=== PATIENT | male | born 1965 ===

== ENCOUNTER 2017-05-15 11:27 | Emergency (ER) | payer OTHER ==
--- NOTE | 2017-05-15 13:20 | C.PDOC ---
History Of Present Illness 51 year old male presents to the ED for evaluation of a headache which has been occurring in intermittent episodes for several months. Patient was unable to find relief after taking Tylenol and Advil. He denies fever, chills, neck pain, vision change. Time Seen by Provider: 05/15/17 12:38 Chief Complaint (Nursing): Headache History Per: Patient History/Exam Limitations: no limitations Onset/Duration Of Symptoms: Intermittent Episodes (several months ) Current Symptoms Are (Timing): Still Present Quality: Aching Preceeding Symptoms: denies: Visual Disturbances Associated Symptoms: denies: Photophobia, Blurred Vision Additional History Per: Patient Past Medical History Reviewed: Historical Data, Nursing Documentation, Vital Signs Vital Signs: Last Vital Signs Temp 98.2 F 05/15/17 14:34 Pulse 92 H 05/15/17 14:34 Resp 18 05/15/17 14:34 BP 142/85 05/15/17 14:34 Pulse Ox 98 05/15/17 14:34 - Medical History PMH: Pneumothorax Surgical History: No Surg Hx Family History: States: Unknown Family Hx - Social History Hx Alcohol Use: Yes Hx Substance Use: No - Immunization History Hx Tetanus Toxoid Vaccination: Yes Hx Influenza Vaccination: No Hx Pneumococcal Vaccination: No Review Of Systems Constitutional: Negative for: Fever, Chills Eyes: Negative for: Vision Change Neurological: Positive for: Headache Physical Exam - Physical Exam Appears: Non-toxic, No Acute Distress Skin: Normal Color, Warm, Dry, No Rash Head: Atraumatic, Normacephalic, No Tenderness, No Swelling Eye(s): bilateral: PERRL, EOMI, Other (conjunctival injection) Ear(s): Bilateral: Normal Oral Mucosa: Moist Throat: No Erythema, No Exudate Neck: Normal ROM, No Midline Cervical Tenderness, No Paracervical Tenderness, Supple Cardiovascular: Rhythm Regular, No Friction Rub, No Murmur Respiratory: Normal Breath Sounds, No Rales, No Rhonchi, No Wheezing Gastrointestinal/Abdominal: Normal Exam, Soft, No Tenderness Back: Normal Inspection, No CVA Tenderness Extremity: Normal ROM, Capillary Refill (less than 2 seconds) Neurological/Psych: Oriented x3, Normal Speech, Normal Cognition, Normal Motor, Normal Sensation Gait: Steady ED Course And Treatment O2 Sat by Pulse Oximetry: 97 (on RA) Pulse Ox Interpretation: Normal Medical Decision Making Medical Decision Making: Plan: * CT Head * Reglan PO * Toradol IM * reassess and disposition Progress: CT Head ordered and reviewed. Reglan PO and Toradol IM administered. On re-exam, the patient reports improvement of symptoms. Abdomen is soft, non- tender and patient is tolerating PO well. Lungs are CTA, heart is RRR. Ambulatory in the ED with steady gait. Follow up with the medical doctor within 1-2 days. Return if worsened. Disposition - Disposition Referrals: [facility] [Outside] Disposition: HOME/ ROUTINE Disposition Time: 14:25 Condition: GOOD Additional Instructions: Follow up with the medical doctor within 1-2 days. Return if worsened. 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 - Scribe Statement The provider has reviewed the documentation as recorded by the Scribe (Gaby Solano) All medical record entries made by the Scribe were at my direction and personally dictated by me. I have reviewed the chart and agree that the record accurately reflects my personal performance of the history, physical exam, medical decision making, and the department course for this patient. I have also personally directed, reviewed, and agree with the discharge instructions and disposition.
--- NOTE | 2017-05-15 13:51 | CT ---
PROCEDURE: CT HEAD WITHOUT CONTRAST. HISTORY: headache, x 6 months COMPARISON: None available. TECHNIQUE: Axial computed tomography images were obtained through the head/brain without intravenous contrast. Radiation dose: Total exam DLP = 982.82 mGy-cm. This CT exam was performed using one or more of the following dose reduction techniques: Automated exposure control, adjustment of the mA and/or kV according to patient size, and/or use of iterative reconstruction technique. FINDINGS: HEMORRHAGE: No intracranial hemorrhage. BRAIN: No mass effect or edema. The metz-white matter differentiation appears intact. Please note that MRI with diffusion imaging is more sensitive in the detection of acute ischemic event. VENTRICLES: No hydrocephalus. CALVARIUM: Unremarkable. PARANASAL SINUSES: Unremarkable as visualized. No significant inflammatory changes. MASTOID AIR CELLS: Unremarkable as visualized. No inflammatory changes. OTHER FINDINGS: None. IMPRESSION: No acute intracranial pathology identified.
[2017-05-15 14:38] VITALS: BP 142/85; PULSE 92; RESP 18; TEMP 98.2
[2017-05-15 22:21] VITALS: O2SAT 97
== END 2017-05-15 14:32 | disposition home or self-care (01) ==
LOC: C.ER 11:27
DX: G43.909 Migraine, unspecified, not intractable, without status migrainosus (principal)
CPT/HCPCS: 70450; 96372; 99284; J1885

== ENCOUNTER 2019-01-13 19:43 | Emergency (ER) | payer OTHER ==
[2019-01-13 19:57] VITALS: TEMP 97.8
--- NOTE | 2019-01-13 20:30 | C.PDOC ---
History Of Present Illness Patient is a 53 year old male, with a Hx of traumatic pneumothorax, who presents to the ED c/o burning right eye pain that began after patient was sanding wood at work and some dust residue went into his eye. Patient notes washing out his eye with mild improvement. He denies any splinters flying into his eye and only notes dust going into his eye. He otherwise denies any temporal pain, jaw pain, double vision/ change in vision, fever, chills, night sweats, or headache. No contact lens use. Translated via resident Jovany Villegas. Time Seen by Provider: 01/13/19 20:30 Chief Complaint (Nursing): Eye Problem History Per: Patient History/Exam Limitations: no limitations Onset/Duration Of Symptoms: Hrs Current Symptoms Are (Timing): Still Present Quality: Burning, "Pain" Recent travel outside of the [place]: No Additional History Per: Patient Past Medical History Reviewed: Historical Data, Nursing Documentation, Vital Signs Vital Signs: Last Vital Signs Temp 97.8 F 01/13/19 19:46 Pulse 88 01/13/19 19:46 Resp 20 01/13/19 19:46 BP 141/97 H 01/13/19 19:46 Pulse Ox 99 01/13/19 19:46 Primary Care Provider: Non [facility] Provider, - Medical History PMH: Pneumothorax Surgical History: No Surg Hx Family History: States: Unknown Family Hx - Social History Hx Alcohol Use: Yes Hx Substance Use: No - Immunization History Hx Tetanus Toxoid Vaccination: Yes Hx Influenza Vaccination: No Hx Pneumococcal Vaccination: No Review Of Systems Constitutional: Negative for: Fever, Chills, Sweats, Weakness, Malaise Eyes: Positive for: Pain (Right eye). Negative for: Vision Change, Eyelid Inflammation ENT: Negative for: Ear Pain, Ear Discharge, Nose Pain, Nose Discharge, Nose Congestion, Mouth Pain, Mouth Swelling, Throat Pain, Throat Swelling, Other (jaw or temporal pain) Cardiovascular: Negative for: Chest Pain Respiratory: Negative for: Cough, Shortness of Breath Gastrointestinal: Negative for: Nausea, Vomiting, Abdominal Pain Genitourinary: Negative for: Dysuria Musculoskeletal: Negative for: Neck Pain Skin: Negative for: Rash, Lesions Neurological: Negative for: Weakness, Headache Physical Exam - Physical Exam Appears: Well, Non-toxic, No Acute Distress Skin: Warm, Dry Head: Atraumatic, Normacephalic, No Tenderness Eye(s): bilateral: Normal Inspection (20/20 ), PERRL, EOMI, right: Other (pterygium with mild conjunctivitis, lids swept no foreign body noted ) Ear(s): Bilateral: Normal Nose: Normal Oral Mucosa: Moist Tongue: Normal Appearing Lips: Normal Appearing Teeth: Normal Dentition Gingiva: Normal Appearing Throat: Normal, No Erythema, No Exudate, No Drooling, No Mass Neck: Trachea Midline, No Midline Cervical Tenderness, No Paracervical Tenderness, Supple, Other (no meningeal signs) Chest: Symmetrical Cardiovascular: Rhythm Regular, No Friction Rub, No Murmur, No JVD Respiratory: No Rales, No Rhonchi, No Wheezing Gastrointestinal/Abdominal: Normal Exam, Soft, No Tenderness Back: Normal Inspection, No CVA Tenderness, No Vertebral Tenderness Extremity: Bilateral: Atraumatic Neurological/Psych: Oriented x3, Normal Speech, Normal Cognition, Normal Cranial Nerves, Normal Motor, Normal Sensation Gait: Steady Extremity: Right: No Drift, Left: No Drift ED Course And Treatment O2 Sat by Pulse Oximetry: 99 (on RA) Pulse Ox Interpretation: Normal Medical Decision Making Medical Decision Making: Patient is a 53 year old male, with a Hx of traumatic pneumothorax, who presents to the ED c/o burning right eye pain that began after patient was sanding wood at work and some dust residue went into his eye. No SOB, lungs CTA. Pt only presents w/ R eye conjunctivitis / redness. No change in vision. PERRLA, EOMI. Pterygium noted to R eye. No signs of trauma. Pupil intact. Impression: Corneal abrasion vs. irritation Right eye procedure note: Anesthetized with tetracaine and dyed with flourescein to check for corneal abrasion. No ulcer or foreign bodies noted. Mild abrasion to lateral surface of right cornea less than 1mm in circumference. No FB noted on eyelid sweeping. Patient tolerated procedure well Antibiotics prescribed. Patient agreeable with plan. Stable for discharge home w/ abx, return indications and followup w/ ophtho. Disposition - Disposition [facility] [Outside] Jamal Alicea MD [Staff Provider] - Disposition: HOME/ ROUTINE Disposition Time: 21:29 Condition: GOOD Additional Instructions: FOLLOW UP WITH DR. NEGRO MAHAJAN, thank you for letting us take care of you today. Your provider was Messi Parish and you were treated for EYE PROBLEM/HEADACHE. The emergency medical care you received today was directed at your acute symptoms. If you were prescribed any medication, please fill it and take as directed. It may take several days for your symptoms to resolve. Return to the Emergency Department if your symptoms worsen, do not improve, or if you have any other problems. Please contact your doctor or call one of the physicians/clinics you have been referred to that are listed on the Patient Visit Information form that is included in your discharge packet. Bring any paperwork you were given at discharge with you along with any medications you are taking to your follow up visit. Our treatment cannot replace ongoing medical care by a primary care provider outside of the emergency department. Thank you for allowing the [facility] team to be part of your care today. If you had an X-Ray or CT scan: A Radiologist will review the ED reading if any change in treatment is needed we will contact you. If you had a blood, urine, or wound culture: It will take several days for the results, if any change in treatment is needed we will contact you. If you had an STI test: It will take 48 hours for the results. Please call after 1 week if you have not heard back. Prescriptions: Ciprofloxacin 0.3% [Ciloxan 0.3% Ophth SOLN] 1 drop OD Q6H 5 Days #1 bottle Instructions: Corneal Abrasion (DC) Forms: [employer] (Greenlandic) Print Language: HUNGARIAN - Clinical Impression Clinical Impression: Corneal abrasion - Scribe Statement The provider has reviewed the documentation as recorded by the Stuart Ring All medical record entries made by the Annabelleibsanthosh were at my direction and personally dictated by me. I have reviewed the chart and agree that the record accurately reflects my personal performance of the history, physical exam, medical decision making, and the department course for this patient. I have also personally directed, reviewed, and agree with the discharge instructions and disposition.
[2019-01-13] MEDS ORDERED: Fluorescein 1 mg Ophthalmic Strip OU ONE (21:08)
[2019-01-13] MEDS ORDERED: Fluorescein 1 mg Ophthalmic Strip ONE (21:21)
[2019-01-13 21:43] VITALS: BP 130/81; PULSE 86; RESP 18
[2019-01-14 20:54] VITALS: O2SAT 99
== END 2019-01-13 21:44 | disposition home or self-care (01) ==
LOC: C.ER 19:43
DX: S05.01XA Injury of conjunctiva and corneal abrasion without foreign body, right eye, initial encounter (principal); X58.XXXA Exposure to other specified factors, initial encounter